=== PATIENT | female | born 1935 | race African-American/Black ===

== ENCOUNTER 2020-07-22 19:48 | Emergency (ER) | payer OTHER ==
[2020-07-22 19:59] VITALS: TEMP 99.1; BMI 19.3
[2020-07-22] MEDS ORDERED: DIPHTH,PERTUSS(ACELL),TET 0.5 ML DISP.SYRIN IM ONE ×2 (20:04→20:31)
[2020-07-22 20:59] VITALS: BP 174/73; PULSE 87
[2020-07-22] MEDS ORDERED: ACETAMINOPHEN 325 MG TABLET (FP) PO ONE (20:59)
[2020-07-22] MEDS ORDERED: ACETAMINOPHEN 325 MG TABLET (FP) ONE (20:59)
== END 2020-07-22 21:02 | disposition home or self-care (01) ==
LOC: FER 19:48
PROC: 3E0234Z Introduction of Serum, Toxoid and Vaccine into Muscle, Percutaneous Approach (ICD-10-PCS; principal; 2020-07-22)
DX: S01.01XA Laceration without foreign body of scalp, initial encounter (principal)
CPT/HCPCS: 70450-TC; 90715; 99284-25